=== PATIENT | female | born 2000 | race Two or more races ===

== ENCOUNTER 2021-06-22 10:03 | Emergency (ER) | payer MEDICAID, OTHER ==
[~2021-06-22] VITALS: Ht 157.5 cm; Wt 81.6 kg
[2021-06-22 10:44] LABS: Basophils # (auto) 0.1 10 ^3/uL (0-0.2); Mean Corpuscular Hemoglobin 22.2 pg (28.0-32.0); Monocytes % (auto) 5.1 % (0.0-12.0); Red Cell Distribution Width 18.2 % (11.8-14.3)
[2021-06-22 10:46] LABS: Basophils % (auto) 0.7 % (0.0-2.0); Eosinophils # (auto) 0.2 10 ^3/uL (0-0.8); Eosinophils % (auto) 2.5 % (0.0-7.0); Hematocrit 35.8 % (36.0-46.0); Hemoglobin 11.4 g/dL (12.2-16.2); Lymphocytes % (auto) 33.2 % (10.0-50.0); Mean Corpuscular Volume 69.4 fL (80.0-100.0); Monocytes # (auto) 0.5 10 ^3/uL (0-1.3); Neutrophils # (auto) 5.2 10 ^3/uL (1.6-8.6); Neutrophils % (auto) 58.5 % (37.0-80.0); Nucleated Red Blood Cells % 0.1 %; Red Blood Cells 5.15 10^6/uL (4.0-5.20); White Blood Cell 8.9 10^3/uL (4.4-10.8)
[2021-06-22 12:08] VITALS: BP 139/86
== END 2021-06-22 13:12 | disposition home or self-care (01) ==
LOC: ER 10:03 → EDBD 10:03 → ER 13:11
DX: N93.9 Abnormal uterine and vaginal bleeding, unspecified (principal); Z32.02 Encounter for pregnancy test, result negative
CPT/HCPCS: 36415; 84702; 85025